=== PATIENT | male | born 1975 | race Hispanic/Latino ===

== ENCOUNTER 2021-04-28 10:49 | Emergency (ER) | payer BC ==
[~2021-04-28] VITALS: Ht 182.9 cm; Wt 104.3 kg
[2021-04-28] MEDS ORDERED: PREDNISONE20 MG PO (11:03)
[2021-04-28] MEDS ORDERED: AZITHROMYCIN250 MG PO (11:03)
== END 2021-04-28 11:28 | disposition home or self-care (01) ==
LOC: FSED 10:57
DX: H93.11 Tinnitus, right ear (principal)
CPT/HCPCS: 99283